=== PATIENT | female | born 1965 | race Caucasian/White ===

== ENCOUNTER → 2024-02-26 06:26 | Day surgery (SDC) | payer BC, SELFPAY | LOC: GI 06:26 | PROVIDERS: ATTENDING PHYSICIAN Internal Medicine Gastroenterology | DX: K22.89 Other specified disease of esophagus (principal); R13.10 Dysphagia, unspecified; K21.00 Gastro-esophageal reflux disease with esophagitis, without bleeding | CPT/HCPCS: 43239; 88305 ==

== ENCOUNTER → 2024-03-29 06:20 | Day surgery (SDC) | payer BC, SELFPAY | LOC: GI 06:20 | PROVIDERS: ATTENDING PHYSICIAN Internal Medicine Gastroenterology | PROC: 0DJD8ZZ Inspection of Lower Intestinal Tract, Via Natural or Artificial Opening Endoscopic (ICD-10-PCS; 2024-03-29) | DX: Z12.11 Encounter for screening for malignant neoplasm of colon (principal); Z53.8 Procedure and treatment not carried out for other reasons | CPT/HCPCS: G0121 ==